=== PATIENT | male | born 1985 | race Caucasian/White ===

== ENCOUNTER 2017-07-22 15:34 | Emergency (ER) | payer MEDICAID ==
[2017-07-22 15:55] VITALS: BP 111/83
== END 2017-07-22 17:18 | disposition home or self-care (01) ==
LOC: ED 15:34
DX: L29.9 Pruritus, unspecified (principal); M25.561 Pain in right knee

== ENCOUNTER 2019-09-27 19:06 | Emergency (ER) | payer MEDICAID ==
[~2019-09-27] VITALS: Ht 170.2 cm; Wt 88.5 kg
[2019-09-27 19:28] VITALS: Ht 170.2 cm; Wt 88.5 kg
[2019-09-27 21:30] LABS: BASOPHIL % 0.6 % (0-2); PLATELET COUNT 284 x10^3mcL (130-400); RED CELL DISTRIBUTION WIDTH 13.1 % (11.5-14.5)
[2019-09-27 21:58] LABS: CALCIUM 8.5 mg/dL (8.5-10.1); CARBON DIOXIDE 27.8 mmol/L (21-32); CHLORIDE SERUM 103 mmol/L (98-107); CREATININE SERUM 0.9 mg/dL (0.7-1.3); GFR1 > 60 mL/min; GLUCOSE SERUM 89 mg/dL (74-106); POTASSIUM SERUM 3.2 mmol/L (3.5-5.1); SODIUM SERUM 142 mmol/L (136-145)
[2019-09-27 22:02] LABS: ALBUMIN 3.6 g/dL (3.4-5.0); ALKALINE PHOSPHATASE 134 U/L (46-116); ALT/SGPT 33 U/L (16-63); AST/SGOT 18 U/L (15-37); BILIRUBIN TOTAL 0.3 mg/dL (0.20-1.00); TOTAL PROTEIN, SERUM 7.7 g/dL (6.4-8.2)
[2019-09-27 22:55] VITALS: BP 107/71
== END 2019-09-27 22:56 | disposition home or self-care (01) ==
LOC: ED 19:06
PROVIDERS: Emergency Medicine
DX: R10.9 Unspecified abdominal pain (principal); R20.0 Anesthesia of skin; R20.2 Paresthesia of skin; R51 Headache; Z87.442 Personal history of urinary calculi
CPT/HCPCS: 36415

== ENCOUNTER 2019-12-06 17:09 | Emergency (ER) | payer MEDICAID ==
[~2019-12-06] VITALS: Ht 177.8 cm; Wt 90.3 kg
[2019-12-06 17:25] VITALS: BP 122/81; Ht 177.8 cm; Wt 90.3 kg
== END 2019-12-06 18:52 | disposition home or self-care (01) ==
LOC: ED 17:09
DX: S51.812A Laceration without foreign body of left forearm, initial encounter (principal); Z88.6 Allergy status to analgesic agent; Z87.442 Personal history of urinary calculi; X58.XXXA Exposure to other specified factors, initial encounter; Y93.89 Activity, other specified; Y92.89 Other specified places as the place of occurrence of the external cause; Y99.8 Other external cause status
CPT/HCPCS: 90715; J2001

== ENCOUNTER 2019-12-09 06:54 | Emergency (ER) | payer MEDICAID ==
[~2019-12-09] VITALS: Ht 167.6 cm; Wt 70.3 kg
[2019-12-09 07:00] VITALS: Ht 167.6 cm; Wt 70.3 kg
[2019-12-09 07:27] VITALS: BP 125/74
== END 2019-12-09 07:27 | disposition home or self-care (01) ==
LOC: ED 06:54
DX: S51.812D Laceration without foreign body of left forearm, subsequent encounter (principal); Z88.6 Allergy status to analgesic agent; X58.XXXD Exposure to other specified factors, subsequent encounter

== ENCOUNTER 2019-12-16 21:29 | Emergency (ER) | payer MEDICAID ==
[~2019-12-16] VITALS: Ht 172.7 cm; Wt 91.2 kg
[2019-12-16 21:31] VITALS: Ht 172.7 cm; Wt 91.2 kg
[2019-12-16 21:46] VITALS: BP 110/58
== END 2019-12-16 21:46 | disposition home or self-care (01) ==
LOC: ED 21:29
DX: S51.812D Laceration without foreign body of left forearm, subsequent encounter (principal); Z87.442 Personal history of urinary calculi; X58.XXXD Exposure to other specified factors, subsequent encounter

== ENCOUNTER 2020-08-30 06:34 | Emergency (ER) | payer MEDICAID ==
[~2020-08-30] VITALS: Ht 172.7 cm; Wt 91.8 kg
[2020-08-30 06:48] VITALS: BP 129/93; Ht 172.7 cm; Wt 91.8 kg
== END 2020-08-30 08:05 | disposition home or self-care (01) ==
LOC: ED 06:34
DX: J06.9 Acute upper respiratory infection, unspecified (principal); H92.03 Otalgia, bilateral; Z20.828 Contact with and (suspected) exposure to other viral communicable diseases; F17.210 Nicotine dependence, cigarettes, uncomplicated; Z87.442 Personal history of urinary calculi; Z88.1 Allergy status to other antibiotic agents
CPT/HCPCS: 99406; U0003